=== PATIENT | female | born 1985 | race Caucasian/White ===

== ENCOUNTER 2018-08-09 21:35 | Emergency (ER) | payer OTHER, SELFPAY ==
[2018-08-09 21:50] VITALS: BP 124/87; PULSE 81; RESP 16; TEMP 37.2; O2SAT 96; BMI 31.2
--- NOTE | 2018-08-09 21:53 | DI.RAD.S_ITS ---
PROCEDURE: XR KNEE RT 3V INDICATIONS: pt c/o severe right knee pain and it locking up TECHNIQUE: 3 views of the knee were acquired. COMPARISON: None. FINDINGS: Bones: No fractures or dislocations. No suspicious bony lesions. Small osteophytes. Soft tissues: Minimal joint effusion. No suspicious soft tissue calcifications. IMPRESSION: 1. No acute bony abnormality of the right knee. 2. Mild degenerative change. Dictated by: Jeanmarie Padron M.D. on 08/10/2018 at 8:07 Approved by: Jeanmarie Padron M.D. on 08/10/2018 at 8:08
--- NOTE | 2018-08-10 00:02 | PC.NURSE ---
Patient reports chronic right knee pain with 3 prior surgeries. Normally has pain in that knee but today pain was severe and it feels like it's catching. No injury. Able to bear weight but it hurts when I bend it while walking.
[2018-08-10 00:03] VITALS: BP 108/66; PULSE 64; RESP 16; O2SAT 97
--- NOTE | 2018-08-11 05:49 | ED.LOWEXIN ---
HPI - Extremity Injury (Lower) General Chief Complaint: Extremity Injury, Lower Stated Complaint: RT KNEE PAIN Time Seen by Provider: 08/09/18 23:08 Source: patient and family Mode of arrival: ambulatory History of Present Illness HPI Narrative: 33-year-old female nonsmoker, otherwise healthy presents with a chief complaint gradually worsening right knee pain over the past few days. She states that on occasion it locks up and she feels some clicking. Her pain becomes significant and difficult to ambulate. She has had this problem for many years and does not even remember the initial injury which caused it. Her symptoms have become much worse over the past few days. She denies any new injury. She denies any numbness, tingling or weakness. She does state that she started to have some pain in her right hip down as well MD complaint: knee injury Onset (ago): year(s) Severity: mild Relieving factors: immobilization Exacerbating factors: weight bearing, movement and palpation Associated symptoms: snap/pop sensation and able to partially bear weight Other symptoms: none Related Data Previous Rx's Medication Instructions Recorded amoxicillin-pot clavulanate 875 mg PO Q8H #14 tab 10/28/16 [Augmentin] Allergies Allergy/AdvReac Type Severity Reaction Status Date / Time No Known Drug Allergies Allergy Verified 08/09/18 21:50 Review of Systems Constitutional Denies chills, Denies fever(s), Denies lethargy and Denies weakness Eyes Denies change in vision, Denies eye discharge, Denies irritation and Denies loss of vision ENT Ears, Nose, Mouth, and Throat: Denies change in voice, Denies neck pain and Denies sore throat Cardiovascular Denies chest pain, Denies irregular heart rhythm, Denies lightheadedness, Denies palpitations, Denies dyspnea, Denies dyspnea on exertion and Denies orthopnea Respiratory Denies cough, Denies dyspnea, Denies dyspnea on exertion and Denies wheezing Gastrointestinal Gastrointestinal: Denies abdominal pain, Denies change in bowel habits, Denies diarrhea, Denies nausea and Denies vomiting Genitourinary Denies hematuria, Denies flank pain, Denies urinary incontinence and Denies urinary urgency Musculoskeletal Reports limited range of motion and Denies neck pain Integumentary/Breasts Denies pruritus, Denies erythema, Denies rash and Denies wounds Neurologic Denies confusion, Denies loss of vision and Denies weakness Psychiatric Denies anxiety, Denies confusion, Denies depression, Denies homicidal ideation and Denies suicidal ideation Endocrine Denies palpitations Hematologic/Lymphatic Denies easy bruising Allergic/Immunologic Denies wheezing PFSH Social History Smoking Status: Current some day smoker Social History Smoking Status: Current some day smoker Exam Narrative Exam Narrative: GEN: AOx3 and in mild distress EYES: Pupils are equal, round, and reactive to light and accommodation. Extraoccular muscles are intact bilaterally. There is no subconjunctival hemorrhage or exudate. CHEST: Lungs are clear to auscultation bilaterally and free of wheezes, rales, or rhonchi. Heart rate is regular rhythm, there are no murmurs, clicks, rubs, or gallops. There is no chest wall tenderness. ABD: Abdomen is soft and nontender. There is no guarding or rebound. Bowel sounds are normal in all 4 quadrants. There is no mass or organomegaly. EXT: Full but painful range of motion of right knee. No obvious deformity. No effusion, redness or warmth. No bony point tenderness. No pain with axial loading. There is some minimal tenderness with Enmanuel's test SKIN: Warm, pink, and dry. No erythema or rash Initial Vital Signs Initial Vital Signs: Vital Signs Temperature 99.0 F 08/09/18 21:50 Pulse Rate 81 08/09/18 21:50 Respiratory Rate 16 08/09/18 21:50 Blood Pressure 124/87 08/09/18 21:50 Pulse Oximetry 96 08/09/18 21:50 Procedures Orthopedic Splinting/Casting Injury #1: Side: right Lower Extremity Injury Location: knee Lower Extremity Immobilizer: knee immobilizer Post splinting neuro exam: intact Post splinting vascular exam: intact Placed by: Nursing Discharge Plan Departure Patient Disposition: Home Clinical Impression: Internal derangement of knee Qualifiers: Laterality: right Qualified Code(s): M23.91 - Unspecified internal derangement of right knee Discharge Date/Time: 08/10/18 00:46 Interventions: ED Discharge Assessment Last Done: 08/10/18 00:44 Instructions: DI for Knee Pain Activity Restrictions/Additional Instructions: *You have been diagnosed with [internal derangement right knee] *What to do: *Take medications as directed: tylenol/motrin for pain *Follow up with your primary care provider in 2-3 days, call for an appointment. Let them know you were seen in the Emergency Department and that we ask that you be seen in follow up. Given the findings of your knee exam it seems that the most likely nature of your pain is a meniscal injury which is most appropriately diagnosed with an MRI, your doctor can help you with this. *Return to ER if you should have any new, worsening or concerning symptoms Prescriptions: No Action amoxicillin-pot clavulanate [Augmentin] 875 MG/125 MG tablet 875 mg PO Q8H Qty: 14 RF: 0
== END 2018-08-10 00:46 | disposition home or self-care (01) ==
PROVIDERS: Emergency Provider Emergency Medicine
DX: M23.91 Unspecified internal derangement of right knee (principal)
CPT/HCPCS: 73562; 99283